=== PATIENT | female | born 1965 | race Asian ===

== ENCOUNTER 2023-02-27 11:55 | Day surgery (SDC) | payer OTHER ==
[~2023-02-27] VITALS: Ht 160 cm; Wt 60.8 kg
== END 2023-02-27 15:00 | disposition home or self-care (01) ==
LOC: MOR 11:55 → MMU 11:56 → MOR 15:00
PROVIDERS: ATTEND Internal Medicine Gastroenterology
DX: Z12.11 Encounter for screening for malignant neoplasm of colon (principal); Z53.8 Procedure and treatment not carried out for other reasons